=== PATIENT | female | born 1990 | race Two or more races ===

== ENCOUNTER 2018-07-03 19:05 | Emergency (ER) | payer OTHER ==
[2018-07-03] MEDS ORDERED: Tetracaine 0.5% OPTH.SOL 4 ML* 1 DROP BTL LEFT EYE ONE (20:21)
[2018-07-03] MEDS ORDERED: Fluorescein Sodium TOPICAL* 1 MG TEST STRIP OPHTHALMIC ONE (22:30)
[2018-07-03] MEDS ORDERED: Fluorescein Sodium TOPICAL* 1 MG TEST STRIP ONE (22:30)
--- NOTE | 2018-07-03 22:41 | ED ---
Throat Pain/Nasal Congestion - HPI Summary HPI Summary: Patient complains of thigh irritation status post left contact lens breaking, leaving a piece in her eye this morning. Patient has been trying to get it out all day, finally got it out prior to being seen here in the ED, but is concerned for possible abrasion. Denies fever, vision change. - History of Current Complaint Chief Complaint: EDEyeProblem Time Seen by Provider: 07/03/18 21:22 Hx Obtained From: Patient Severity: Mild Cough: None - Allergies/Home Medications Allergies/Adverse Reactions: Allergies Allergy/AdvReac Type Severity Reaction Status Date / Time No Known Allergies Allergy Verified 07/03/18 19:19 Home Medications: Home Medications NK [No Home Medications Reported] 07/03/18 [History Confirmed 07/03/18] PMH/Surg Hx/FS Hx/Imm Hx Endocrine/Hematology History: Denies: Hx Anticoagulant Therapy Cardiovascular History: Denies: Hx Pacemaker/ICD History: Denies: Hx Dialysis Sensory History: Denies: Hx Eye Prosthesis Opthamlomology History: Denies: Hx Legally Blind EENT History: Denies: Hx Deafness Neurological History: Denies: Hx CVA Psychiatric History: Denies: Hx Autism Infectious Disease History: No Infectious Disease History: Denies: Traveled Outside the [place] in Last 30 Days - Social History Alcohol Use: Occasionally Substance Use Type: Reports: None Smoking Status (MU): Never Smoked Tobacco Review of Systems Constitutional: Negative Positive: Other ENT: Negative Cardiovascular: Negative Respiratory: Negative Gastrointestinal: Negative Genitourinary: Negative Musculoskeletal: Negative Skin: Negative Neurological: Negative Psychological: Normal All Other Systems Reviewed And Are Negative: Yes Physical Exam - Summary Physical Exam Summary: No foreign body noted in left eye. Positive corneal abrasion at 1 o'clock position extending from iris into conjunctiva. EOMI. PERRLA. Triage Information Reviewed: Yes Vital Signs On Initial Exam: Initial Vitals Temp Pulse Resp BP Pulse Ox 98.3 F 61 16 111/57 100 07/03/18 19:19 07/03/18 19:19 07/03/18 19:19 07/03/18 19:19 07/03/18 19:19 Vital Signs Reviewed: Yes Appearance: Positive: Well-Appearing Skin: Positive: Warm Head/Face: Positive: Normal Head/Face Inspection Eyes: Positive: EOMI, IVONNE, Conjunctiva Inflammed. Negative: Discharge Neck: Positive: Supple Respiratory/Lung Sounds: Positive: Clear to Auscultation Cardiovascular: Positive: Normal Abdomen Description: Positive: Nontender Musculoskeletal: Positive: Normal Neurological: Positive: Normal Psychiatric: Positive: Normal AVPU Assessment: Alert - Pauline Coma Scale Best Eye Response: 4 - Spontaneous Best Motor Response: 6 - Obeys Commands Best Verbal Response: 5 - Oriented Coma Scale Total: 15 Diagnostics - Vital Signs Vital Signs Temp Pulse Resp BP Pulse Ox 07/03/18 19:19 98.3 F 61 16 111/57 100 - Laboratory Lab Statement: Any lab studies that have been ordered have been reviewed, and results considered in the medical decision making process. EENT Course/Dx - Course Course Of Treatment: Patient complains of thigh irritation status post left contact lens breaking, leaving a piece in her eye this morning. Patient has been trying to get it out all day, finally got it out prior to being seen here in the ED, but is concerned for possible abrasion. Denies fever, vision change. Physical exam:No foreign body noted in left eye. Positive corneal abrasion at 1 o'clock position extending from iris into conjunctiva. EOMI. PERRLA. Vital signs within normal limits. Patient started on gentamicin ophthalmic solution 2 drops every 4 hours. Follow-up with ophthalmology Dr. Duvall tomorrow. Patient understands improves her plan. - Diagnoses Provider Diagnoses: Corneal abrasion due to contact lens Discharge - Sign-Out/Discharge Documenting (check all that apply): Patient Departure Patient Received Moderate/Deep Sedation with Procedure: No - Discharge Plan Condition: Stable Disposition: HOME Patient Education Materials: Corneal Abrasion (ED) Referrals: Nini Matthews NP [Primary Care Provider] - Gregorio Caceres MD [Medical Doctor] - Additional Instructions: 2 drops antibiotic solution in left eye every 4 hours. Follow-up with ophthalmology Dr Caceres for post ED follow-up visit. Return to the ED for any new or worsening symptoms. - Billing Disposition and Condition Condition: STABLE Disposition: Home
[2018-07-03] MEDS ORDERED: Gentamicin 0.3% OPHTH.SOLN* 5 ML BTL LEFT EYE ONE (22:43)
[2018-07-03 22:52] VITALS: BP 0/0
[2018-07-03] MEDS ORDERED: Gentamicin 0.3% OPHTH.SOLN* 5 ML BTL LEFT EYE SCH (23:00)
== END 2018-07-03 22:49 | disposition home or self-care (01) ==
LOC: ED 19:05
DX: H18.822 Corneal disorder due to contact lens, left eye (principal)
CPT/HCPCS: 99282; A9270-GY